=== PATIENT | female | born 1965 | race Caucasian/White ===

== ENCOUNTER 2017-07-31 19:50 | Inpatient (IN) ==
--- NOTE | 2017-07-31 20:04 | Emergency Department Note ---
Disposition Clinical Impression: Acute renal insufficiency Fall Qualifiers: Encounter type: initial encounter Qualified Code(s): W19.XXXA - Unspecified fall, initial encounter Altered mental status Qualifiers: Altered mental status type: unspecified Qualified Code(s): R41.82 - Altered mental status, unspecified Disposition: Admitted As Inpatient Fall HPI - General Chief Complaint: ED Fall Stated Complaint: fall Time Seen by Provider: 07/31/17 20:00 Source: patient, EMS Nursing Notes Reviewed: Yes Vital Signs Reviewed: Yes - History of Present Illness HPI Narrative: 52-year-old female presents to the emergency department after having a fall at home. She was in a chair and stated that she stood up and everything went black , and she said that she fell and hit the right side of her head as well as her right shoulder. She is complaining of head pain and shoulder pain. She was complaining of mild paresthesias of the right arm for EMS, but is not currently complaining of that for me. Patient denies any nausea, vomiting. Family home states the patient is on a lot of medications and was recently given a prescription for Vistaril. Patient denies any chest pain, but she does admit to pain in her right shoulder, right side of her head, no neck pain, no new back pain as this patient has had back surgery in past. - Related Data Home Medications Medication Instructions Recorded Confirmed Atenolol [Tenormin] 50 mg PO BID 12/16/15 08/01/17 Bupropion HCl [Wellbutrin Xl] 300 mg PO HS 12/16/15 08/01/17 Lisinopril [Zestril] 30 mg PO DAILY 12/16/15 08/01/17 Lovastatin [Mevacor] 40 mg PO DAILY 12/16/15 08/01/17 Morphine Sulfate [Ronit] 15 mg PO TID 12/16/15 08/01/17 Trazodone HCl [Oleptro ER] 50 mg PO HS 12/16/15 08/01/17 Alprazolam 0.5 mg PO DAILY 08/01/17 08/01/17 BuPROPion XL (24 HR) 150 mg PO DAILY 08/01/17 08/01/17 Halcion 0.25 mg PO DAILY 08/01/17 08/01/17 Lamictal 200 mg PO DAILY 08/01/17 08/01/17 Levocetirizine Dihydrochloride 5 mg PO DAILY 08/01/17 08/01/17 Quetiapine Fumarate [Seroquel] 200 mg PO DAILY 08/01/17 08/01/17 Vistaril 50 mg PO DAILY 08/01/17 08/01/17 Allergies Allergy/AdvReac Type Severity Reaction Status Date / Time No Known Allergies Allergy Verified 12/28/16 14:31 All systems ED: reviewed and negative except as stated. Review of Systems: As Per HPI Constitutional: Denies: fever Cardiovascular: Denies: chest pain, palpitations Gastrointestinal: Denies: abdominal pain, nausea, vomiting Genitourinary: Denies: urgency, dysuria, frequency Neurological: Reports: weakness, confusion. Denies: headache, numbness, paresthesias Endocrine: Reports: fatigue Fall PMH - Past Medical History Medical history: Reports: non-contributory Psychiatric history: Reports: anxiety, bipolar, depression, panic disorder, prior suicide attempt - Social History Smoking Status: Current every day smoker Alcohol use: Reports: occasionally Drug use: Reports: none Physical Exam CONSTITUTIONAL: The patient is alert and arousable, but appears disoriented, pupils are equal and reactive but slightly myotic HEAD: Normocephalic; atraumatic. EYES: PERRL, no scleral icterus. NOSE: The nose is normal in appearance without rhinorrhea Neck: No central midline tenderness of the neck. RESP: Normal chest excursion with respiration; breath sounds clear and equal bilaterally; no wheezes, rhonchi, or rales CARD: Regular rhythm, without murmurs, rub or gallop ABD: Non-distended; non-tender, soft,without rigidity, rebound or guarding Back: No vertebral step-offs or midline tenderness to palpation SKIN: Normal for age and race; warm and dry; no apparent lesions Neuro: GCS 14, no focal neurologic deficits, negative [id number], upper and lower extremities sensation intact throughout, strength 5 out of 5 in upper and lower shoulders bilaterally - General Limitations: no limitations General appearance: alert, in no apparent distress Course Vital Signs Temperature 97.9 F 07/31/17 19:52 Pulse Rate 72 07/31/17 19:52 Respiratory Rate 18 07/31/17 19:52 Blood Pressure 161/94 07/31/17 19:52 O2 Sat by Pulse Oximetry 99 07/31/17 19:52 Temperature 97.6 F 08/01/17 03:39 Pulse Rate 56 08/01/17 03:47 Respiratory Rate 16 08/01/17 03:39 Blood Pressure 122/73 08/01/17 03:47 O2 Sat by Pulse Oximetry 93 08/01/17 03:39 Oxygen Delivery Oxygen Delivery Room Air Fall - MDM Narrative Medical decision making narrative: 52-year-old female presents to the emergency department with concern for fall and altered mental status. This is a patient who is on a lot of sedating medications. Family states that patient tends to become disoriented at night. On initial exam, patient was alert, but appeared to be intoxicated. We will obtain CT scan of the head and neck and this does not reveal any acute abnormality. Chest x-ray did not reveal any amount as well. EKG revealed no ischemic ST changes. Troponin was negative, CBC revealed a hemoglobin 11.3, which is mildly lower from a previous one. Urinalysis does not reveal any evidence of infection. Urine drug screen was positive for opiates and benzos. Patient began to become less arousable during her stay in the emergency department. At that time, we did administer Narcan and patient did not respond to it. I was at bedside with patient and family and it was decided to admit her to the hospital for further observation and evaluation. I spoke with the hospitalist and he agreed to accept admission. Patient's hemodynamic was stable, protecting her airway, but disoriented at time of admission. Vital Signs Temperature 97.9 F 07/31/17 19:52 Pulse Rate 72 07/31/17 19:52 Respiratory Rate 18 07/31/17 19:52 Blood Pressure 161/94 07/31/17 19:52 O2 Sat by Pulse Oximetry 99 07/31/17 19:52 Temperature 97.6 F 08/01/17 03:39 Pulse Rate 56 08/01/17 03:47 Respiratory Rate 16 08/01/17 03:39 Blood Pressure 122/73 08/01/17 03:47 O2 Sat by Pulse Oximetry 93 08/01/17 03:39 Oxygen Delivery Oxygen Delivery Room Air - Lab Data Result diagrams: 08/01/17 04:19 08/01/17 04:19 Lab Results 07/31/17 07/31/17 07/31/17 Range/Units 20:15 20:15 20:38 WBC 8.3 (4.3-11.1) K/mcL RBC 4.11 (3.82-4.97) M/mcL Hgb 12.1 (11.5-15.4) g/dL Hct 36.0 (35.3-44.9) % MCV 87.6 (83.0-100.0) fL MCH 29.4 (28.0-33.3) pg MCHC 33.6 (31.6-35.5) g/dL RDW 12.1 (11.5-14.5) % Plt Count 167 (140-400) K/mcL MPV 9.5 (9.4-12.4) fL Immature Gran % 0.4 (0-4) % Seg Neutrophils % 71.9 % Lymphocytes % 16.0 % Monocytes % 9.7 % Eosinophils % 1.5 % Basophils % 0.5 % Neutrophils # 6.0 (1.6-8.9) K/mcL Lymphocytes # 1.3 (0.6-4.6) K/mcL Monocytes # 0.8 (0.0-1.3) K/mcL Eosinophils # 0.1 (0.0-0.6) K/mcL Basophils # 0.0 (0.0-0.2) K/mcL Sodium (136-145) mEq/L Potassium (3.5-4.5) mEq/L Chloride (98-109) mEq/L Carbon Dioxide (19-29) mEq/L BUN (7-20) mg/dL Creatinine (0.57-1.11) mg/dL Est GFR ( Amer) (> 60) Est GFR (Non-Af Amer) (> 60) BUN/Creatinine Ratio (6-26) Glucose (70-99) mg/dL Calculated Osmolality (280-300) Calcium (8.6-10.8) mg/dL Troponin I (0-0.03) ng/mL TSH (0.350-4.840) mcIU/mL Urine Color Yellow (Yellow) Urine Clarity Clear (Clear) Urine pH 7.0 (5.0-8.0) pH Units Ur Specific [place] 1.023 (1.010-1.025) Urine Protein Negative (Neg-Trace) mg/dL Urine Glucose (UA) Normal (Normal) mg/dL Urine Ketones Negative (Negative) mg/dL Urine Blood Negative (Negative) Urine Nitrite Negative (Negative) Urine Bilirubin Negative (Negative) Urine Urobilinogen Normal (Normal) mg/dL Ur Leukocyte Esterase Negative (Negative) Ur Culture Indicated? NO (NO) Urine Opiates Screen Positive H (Mshftk=423) ng/mL Ur Barbiturates Screen Negative (Eoyijy=062) ng/mL Ur Phencyclidine Scrn Negative (Cutoff=25) ng/mL Ur Amphetamines Screen Negative (Htqmlx=3929) ng/mL U Benzodiazepines Scrn Positive H (Rahxyh=125) ng/mL Urine Cocaine Screen Negative (Cutoff= 300) ng/mL U Marijuana (THC) Screen Negative (Cutoff = 50) ng/mL 07/31/17 07/31/17 07/31/17 Range/Units 20:38 20:38 20:38 WBC (4.3-11.1) K/mcL RBC (3.82-4.97) M/mcL Hgb (11.5-15.4) g/dL Hct (35.3-44.9) % MCV (83.0-100.0) fL MCH (28.0-33.3) pg MCHC (31.6-35.5) g/dL RDW (11.5-14.5) % Plt Count (140-400) K/mcL MPV (9.4-12.4) fL Immature Gran % (0-4) % Seg Neutrophils % % Lymphocytes % % Monocytes % % Eosinophils % % Basophils % % Neutrophils # (1.6-8.9) K/mcL Lymphocytes # (0.6-4.6) K/mcL Monocytes # (0.0-1.3) K/mcL Eosinophils # (0.0-0.6) K/mcL Basophils # (0.0-0.2) K/mcL Sodium 139 (136-145) mEq/L Potassium 4.8 H (3.5-4.5) mEq/L Chloride 108 (98-109) mEq/L Carbon Dioxide 26 (19-29) mEq/L BUN 35 H (7-20) mg/dL Creatinine 1.31 H (0.57-1.11) mg/dL Est GFR ( Amer) 51 L (> 60) Est GFR (Non-Af Amer) 42 L (> 60) BUN/Creatinine Ratio 27 H (6-26) Glucose 97 (70-99) mg/dL Calculated Osmolality 296 (280-300) Calcium 10.5 (8.6-10.8) mg/dL Troponin I 0.00 (0-0.03) ng/mL TSH 1.367 (0.350-4.840) mcIU/mL Urine Color (Yellow) Urine Clarity (Clear) Urine pH (5.0-8.0) pH Units Ur Specific [place] (1.010-1.025) Urine Protein (Neg-Trace) mg/dL Urine Glucose (UA) (Normal) mg/dL Urine Ketones (Negative) mg/dL Urine Blood (Negative) Urine Nitrite (Negative) Urine Bilirubin (Negative) Urine Urobilinogen (Normal) mg/dL Ur Leukocyte Esterase (Negative) Ur Culture Indicated? (NO) Urine Opiates Screen (Zudqed=684) ng/mL Ur Barbiturates Screen (Afqydl=198) ng/mL Ur Phencyclidine Scrn (Cutoff=25) ng/mL Ur Amphetamines Screen (Vaoogn=7690) ng/mL U Benzodiazepines Scrn (Mvoisb=365) ng/mL Urine Cocaine Screen (Cutoff= 300) ng/mL U Marijuana (THC) Screen (Cutoff = 50) ng/mL - EKG Data EKG attestation: Yes I reviewed and interpreted this EKG. EKG results narrative: 19:58 A jugular rate 69 bpm, AL interval 214 ms, QRS druze 120 ms, QT 372 ms, QTC 392 ms, normal axis. Sinus rhythm with a ventricular rate of 69 bpm. There is first-degree AV block. There is no evidence of any ischemia on this electrocardiogram. This study was compared to previous one performed on June 23, 2017 Attestation Statement - Attestation Attestation: I, Giovanny Ceron MD, personally evaluated this patient and discussed their management with the resident physician. I reviewed the resident's note and agree with the documented findings, medical decision making, and plan of care. 52-year-old female presents to the emergency department after she had an episode at home where she became dizzy and lightheaded and fell. She does not really remember falling and is unsure if she tripped or just passed out. She did hit her head and complains of pain in the right side of her head and her right shoulder. Also right upper back and neck. Here in the emergency department the patient appears to be overmedicated. She is very drowsy and sleepy and sometimes will only respond to sternal rub. Her speech is slow and slurred. Patient's [id number] is present and states that she has seen her have similar episodes in the past. She is on pain medications. On examination patient is a well-developed well-nourished female in no acute distress. She is drowsy and sleepy but responds to physical stimuli. There is no cyanosis or diaphoresis. No scalp hematomas noted. Some tenderness over the right scalp. No facial contusions or swelling noted. Neck is supple with some mild right-sided posterior tenderness. No tenderness directly over the cervical spine. Mild tenderness of the right shoulder with full range of motion. Chest is nontender to palpation. Breath sounds are clear and equal bilaterally. Heart regular rate and rhythm. Abdomen is soft and nontender with normal bowel sounds. No gross focal neurological deficits. Labs reviewed and unremarkable. Tox screen positive for opiates and benzodiazepines. CT of the head and cervical spine negative. Chest x-ray negative. X-ray of the right shoulder negative. Patient was observed here in the emergency department for several hours in continued to be extremely drowsy and difficult to arouse and actually seems to maybe be a little worse than originally. She did receive a low dose of Narcan with no significant change. The hospitalist, Dr. Sandoval, was consulted and accepted the admission of the patient.
[2017-07-31 20:27] LABS: Bilirubin,Urine Negative (Negative); Blood,Urine Negative (Negative); Clarity,Urine Clear (Clear); Color,Urine Yellow (Yellow); Glucose,Urine (UA) Normal (Normal); Ketones,Urine Negative (Negative); Leukocyte Esterase,Urine Negative (Negative); Nitrite,Urine Negative (Negative); Protein,Urine Negative (Neg-Trace); Specific Gravity,Urine 1.023 (1.010-1.025); Urobilinogen,Urine Normal (Normal)
[2017-07-31 20:48] LABS: Basophils % 0.5 %; Eosinophils # 0.1 K/mcL (0.0-0.6); Eosinophils % 1.5 %; Hemoglobin 12.1 g/dL (11.5-15.4); Immature Granulocytes % 0.4 % (0-4); Lymphocytes # 1.3 K/mcL (0.6-4.6); Mean Corpuscular HGB Conc 33.6 g/dL (31.6-35.5); Mean Corpuscular Hemoglobin 29.4 pg (28.0-33.3); Mean Corpuscular Volume 87.6 fL (83.0-100.0); Mean Platelet Volume 9.5 fL (9.4-12.4); Monocytes # 0.8 K/mcL (0.0-1.3); Monocytes % 9.7 %; Platelet Count 167 K/mcL (140-400); Red Blood Count 4.11 M/mcL (3.82-4.97); Red Cell Distribution Width 12.1 % (11.5-14.5); Segmented Neutrophils % 71.9 %
[2017-07-31 21:02] LABS: Calcium 10.5 mg/dL (8.6-10.8); Potassium 4.8 mEq/L (3.5-4.5)
[2017-07-31] MEDS ORDERED: Naloxone 0.4 MG/ML INJ IVP ONE (23:04)
[2017-07-31] MEDS ORDERED: Naloxone 0.4 MG/ML INJ ONE (23:04)
[2017-08-01 00:05] LABS: Amphetamine Screen,Urine Negative ng/mL (Cutoff=1000); Barbiturate Screen,Urine Negative ng/mL (Cutoff=200); Benzodiazepines Screen,Urine Positive ng/mL (Cutoff=200); Cannabinoid Screen,Urine Negative ng/mL (Cutoff = 50); Cocaine Screen,Urine Negative ng/mL (Cutoff= 300); Opiate Screen,Urine Positive ng/mL (Cutoff=300); Phencyclidine Screen,Urine Negative ng/mL (Cutoff=25)
[2017-08-01] MEDS ORDERED: 0.9 % Sodium Chloride 1,000 ML IVC ONE (00:07)
[2017-08-01] MEDS ORDERED: Acetaminophen 325 MG TABLET PO PRN (02:08)
[2017-08-01] MEDS ORDERED: Ondansetron ODT 4 MG TAB.RAPDIS SL PRN (02:08)
[2017-08-01] MEDS ORDERED: 0.9 % Sodium Chloride 1,000 ML IVC SCH (02:15)
--- NOTE | 2017-08-01 02:18 | Internal Med History&Physical ---
<Gio Shay - Last Filed: 08/01/17 02:53> Date of Encounter: 08/01/17 Time of Encounter: 01:45 Assessment and Plan (1) Syncope Current visit: Yes Status: Acute Patient claims to have become dizzy and light-headed when she quickly stood up. Neuro exam was normal. Vitals upon presentation were stable. EKG does show some TX prolongation, suggesting a 1st degree AV block. No signs of ST-elevations or acute ischemic changes when compared to prior EKG. Patient did present with a murmur on the aortic post and also of the carotids b/l. No prior echocardiogram was avialable. [place]-hallpike test was negative. Her syncope seems most likely attributable to a vasovagal response, given that it occurred right when she stood up and started to experience dizziness. However, given that she did present with a heart mumur and bruits were appreciated in her carotids b/l, a cardiac cause to her syncope cannot be ruled out yet. In addition, since her syncope was unwitnessed, a seizure cannot be ruled out as well. - Orthostatic vitals. - Cardiac telemetry monitoring. - Echocardiogram. - B/L carotid duplex. - EEG. - ASA - Statin. Qualifiers: Syncope type: unspecified Qualified Code(s): R55 - Syncope and collapse (2) Status post fall Current visit: Yes Status: Acute Head CT, cervical CT, and shoulder x-ray were negative. - Fall precautions. (3) LACY (acute kidney injury) Current visit: Yes Status: Acute Last known creatinine was 1.09 in 2015. - IV fluids. (4) Hyperkalemia Current visit: Yes Status: Acute Potassium level at 4.8. - Continue to monitor for now. Plan to give kayexalate if it increases. (5) Hypertension Current visit: Yes Status: Acute BP currently at 152/83. - Home med of lisinopril 30 mg qd. Qualifiers: Hypertension type: essential hypertension Qualified Code(s): I10 - Essential (primary) hypertension (6) DVT prophylaxis Current visit: Yes Status: Acute - SCDs. Internal Medicine - H&P: HPI Chief complaint: Syncope/fall Admitted From: Emergency Dept History of present illness: Ms. Neal is a 52 year old female with a PMH of anxiety/depression and HTN that presents for syncope and s/p fall. Patient says that she suddenly became dizzy when she stood up and then "blacked out". She had apparently hit the R side of her head and R shoulder when she collapsed on the floor. This was unwitnessed and the son, who was present at bedside, was unsure how long she was out. Patient was able to be aroused in the ambulance on the way to the ED. Patient's son says that is has happened again a year ago when she was getting milk from the refrigerator and passed out. When I spoke to her today, she was alert and oriented x 2 (unable to remember date). Her son says that she was not like this before the fall. Patient says she had started vistaril a few days ago in order to ween off from taking Ativan daily. Patient mentions that she does not drink water on a daily basis and she mostly drinks coffee instead. She admits to some light-headedness, but she denies any LEAL, vision changes, chest pain, SOB, fever, chills, recent illness, dysuria, hematuria, constipation, or diarrhea. Past Med Surg Social Fam HX - Past Medical History Medical history: non-contributory Psychiatric history: anxiety, bipolar, depression, panic disorder, prior suicide attempt - Social History Smoking Status: Current every day smoker Smokeless Tobacco Status: No Alcohol use: occasionally Drug use: none - Family History Mother Adopted: [place]: LORI[place] Family Member Ethnicity: Non- Living Status: Age at : 48 Cause of : SUICIDE Hx Family Cardiac Disorders: No Hx Family Respiratory Disorders: No Hx Family Cancer: No Hx Family GI Disorders: No Hx Family Genitourinary Disorders: No Hx Family Endocrine Disorder: No Hx Family Musculoskeletal Disorders: No Hx Family Neuromuscular Disorders: No Hx Family Neurologic Disorders: No Hx Family HEENT Disorders: No Hx Family Autoimmune Disorders: No Hx Family Reproductive Disorders: No Hx Family Psychosocial Disorders: Yes (SUICIDE) Hx Family Medical Disorders: No Internal Medicine - H&P: Meds Atenolol [Tenormin] 50 mg PO BID 12/16/15 [History] Bupropion HCl [Wellbutrin Xl] 300 mg PO HS 12/16/15 [History] Lisinopril [Zestril] 30 mg PO DAILY 12/16/15 [History] Lovastatin [Mevacor] 40 mg PO DAILY 12/16/15 [History] Morphine Sulfate [Ronit] 15 mg PO TID 12/16/15 [History] Trazodone HCl [Oleptro ER] 50 mg PO HS 12/16/15 [History] Alprazolam 0.5 mg PO DAILY 08/01/17 [History] BuPROPion XL (24 HR) 150 mg PO DAILY 08/01/17 [History] Halcion 0.25 mg PO DAILY 08/01/17 [History] Lamictal 200 mg PO DAILY 08/01/17 [History] Levocetirizine Dihydrochloride 5 mg PO DAILY 08/01/17 [History] Quetiapine Fumarate [Seroquel] 200 mg PO DAILY 08/01/17 [History] Vistaril 50 mg PO DAILY 08/01/17 [History] 3 Allergy/AdvReac Type Severity Reaction Status Date / Time No Known Allergies Allergy Verified 12/28/16 14:31 All Systems PM: A 10-system review of systems was performed and is negative for pertinent findings except as documented above in the HPI. - Constitutional Constitutional: falls, no chills, no fever(s), no weakness - EENT Eyes: no change in vision Nose, mouth and throat: dry mouth - Cardiovascular Cardiovascular ROS IM: lightheadedness, syncope, no chest pain, no dyspnea, no palpitations - Respiratory Respiratory: no cough, no dyspnea, no dyspnea on exertion, no wheezing - Gastrointestinal Gastrointestinal: no abdominal pain, no diarrhea, no nausea, no vomiting - Genitourinary Genitourinary: no dysuria, no hematuria - Musculoskeletal Musculoskeletal ROS IM: back pain - Neurological Neurological ROS: confusion, no dizziness, no focal weakness, no headache(s), no numbness, no tingling, no weakness - Psychiatric Psychiatric: anxiety, depression - Constitutional Vitals: Temp Pulse Resp BP Pulse Ox 97.7 F 61 14 152/83 93 08/01/17 00:59 08/01/17 00:59 08/01/17 00:59 08/01/17 00:59 08/01/17 00:59 General appearance: Present: A&O X 2, pleasant, no acute distress, answers questions appropriately - Head Head exam: Present: atraumatic, normal inspection Additional comments: No signs of bleeding, bruising, or erythema. - Eye Eye exam: Present: EOMI, PERRL Pupils: Present: PERRL - Respiratory Respiratory exam: Present: CTAB. Absent: rales, respiratory distress, rhonchi, wheezes, tachypnea - Cardiovascular Cardiovascular exam: Present: RRR, +S1, +S2, systolic murmur (Early systolic murmur from aortic post) Additional comments: Murmur appreciated in carotids b/l. - GI/Abdominal GI/Abdominal exam: Present: normal bowel sounds, soft. Absent: guarding, rebound, tenderness - Extremities Exam Extremities exam: Present: full ROM, normal capillary refill, radial pulses palpable and symmetrical. Absent: cyanotic, pedal edema, tenderness - Neurological Exam Neurological exam: Present: alert, CN II-XII intact, reflexes normal (Upper DTRs intact. Unable to obtain LE DTRs as patient was unable to relax. ), no focal deficits, strengths equal and symetr throughout. Absent: motor sensory deficit Additional comments: [place]-hallpike test negative. Internal Med - H&P Results - Labs CBC & Chem 7: 07/31/17 20:38 07/31/17 20:38 <Diego Bryson - Last Filed: 08/01/17 03:47> Date of Encounter: 08/01/17 Internal Medicine - H&P: HPI History of present illness: Ms. Neal is a 52 year old female All Systems PM: A 10-system review of systems was performed and is negative for pertinent findings except as documented above in the HPI. - Constitutional Vitals: Temp Pulse Resp BP Pulse Ox 97.6 F 56 16 122/73 93 08/01/17 03:39 08/01/17 03:39 08/01/17 03:39 08/01/17 03:39 08/01/17 03:39 Internal Med - H&P Results - Labs CBC & Chem 7: 07/31/17 20:38 07/31/17 20:38 - Attending Attestation I examined this patient and my medical decision-making was reviewed with the Resident Physician. I agree with the documented findings, disposition and treatment plan as described except to the extent set forth below. I have seen and examined the patient. Patient is a 52-year-old female with past medical history of hypertension, anxiety, depression, bipolar disorder and hyperlipidemia. Patient presents to ED for syncope and status post fall. Patient states that she became dizzy earlier today and had a fall. Patient did have loss of consciousness. It is unclear as to how long the patient had passed out. This was unwitnessed. Unclear if patient had any seizure-like activity. Patient denies chest pain or shortness of breath or palpitations. She denies headache or dizziness or fever at this time. No abdominal pain or vomiting or diarrhea. Initial workup in the ED is negative. CT of the head and chest x-ray were both negative. Possibilities include cardiac arrhythmia or seizure. Echocardiogram and carotid Doppler and EEG are pending. Patient has been explained about her condition and plan of care in detail. She understood and agreed. No unanswered questions. CODE STATUS full code.
[2017-08-01] MEDS ORDERED: traZODone 50 MG TABLET PO SCH (04:00)
[2017-08-01 05:09] LABS: Basophils % 0.4 %; Eosinophils # 0.1 K/mcL (0.0-0.6); Eosinophils % 1.7 %; Hematocrit 33.9 % (35.3-44.9); Hemoglobin 11.3 g/dL (11.5-15.4); Immature Granulocytes % 0.3 % (0-4); Lymphocytes # 1.5 K/mcL (0.6-4.6); Lymphocytes % 21.8 %; Mean Corpuscular HGB Conc 33.3 g/dL (31.6-35.5); Mean Corpuscular Hemoglobin 29.4 pg (28.0-33.3); Mean Corpuscular Volume 88.1 fL (83.0-100.0); Mean Platelet Volume 9.9 fL (9.4-12.4); Monocytes # 0.7 K/mcL (0.0-1.3); Monocytes % 9.6 %; Neutrophils # 4.6 K/mcL (1.6-8.9); Platelet Count 164 K/mcL (140-400); Red Blood Count 3.85 M/mcL (3.82-4.97); Red Cell Distribution Width 12.2 % (11.5-14.5); Segmented Neutrophils % 66.2 %
[2017-08-01 05:24] LABS: BUN/Creatinine Ratio 28 (6-26); Blood Urea Nitrogen 30 mg/dL (7-20); Carbon Dioxide 23 mEq/L (19-29); Chloride 109 mEq/L (98-109); Glucose 81 mg/dL (70-99); Osmolality,Calculated 297 (280-300); Potassium 4.4 mEq/L (3.5-4.5); Sodium 141 mEq/L (136-145); eGFR For African Americans > 60 (> 60); eGFR For Non-African Americans 53 (> 60)
[2017-08-01] MEDS ORDERED: BuPROPion XL (24 HR) 150 MG TABLET PO SCH ×2 (09:00→21:00)
[2017-08-01] MEDS ORDERED: ALPRAZolam 0.5 MG TABLET PO SCH (09:00)
[2017-08-01] MEDS ORDERED: lamoTRIgine 100 MG TABLET PO SCH ×2 (09:00→21:00)
[2017-08-01] MEDS ORDERED: Aspirin 81 MG TAB.CHEW PO SCH (09:00)
[2017-08-01] MEDS ORDERED: hydrOXYzine pamoate 25 MG CAPSULE PO SCH (09:00)
[2017-08-01] MEDS ORDERED: *HR* Morphine Sulfate SR (12 HR) 15 MG TABLET.ER PO PRN (11:18)
--- NOTE | 2017-08-01 12:37 | Neurology - Consult Note ---
Date of Encounter: 08/06/17 Time of Encounter: 12:35 Assessment and Plan (1) Syncope Status: Acute This patient will seem to have an episode of blackout sound like a syncope. She is back to her baseline no focal deficits on neurological examination CT of the head is negative she is scheduled for further workup recommended cardiac workup. At the same time also suggest getting metabolic workup including vitamin B12 and TSH to make sure no underlying metabolic abnormality that may have caused her symptoms. Check for orthostatic hypotension Check for any underlying cardiac and his meals at might be the reason for her syncope along with other causes of cardiogenic syncope Though could do EEG but likelihood of finding any abnormalities less as the description is not like a typical seizure Other workup is as per primary care team Qualifiers: Syncope type: unspecified Qualified Code(s): R55 - Syncope and collapse (2) Status post fall Status: Acute History of Present Illness HPI: Ms. Neal is a 52 year old female with a PMH of anxiety/depression and HTN that presents for syncope and s/p fall. Patient says that she suddenly became dizzy when she stood up and then "blacked out". She had apparently hit the R side of her head and R shoulder when she collapsed on the floor. This was unwitnessed and the son, who was present at bedside, was unsure how long she was out. Patient was able to be aroused in the ambulance on the way to the ED. Patient's son says that is has happened again a year ago when she was getting milk from the refrigerator and passed out. she was started vistaril a few days ago in order to ween off from taking Ativan daily. Patient mentions that she does not drink water on a daily basis and she mostly drinks coffee instead. She admits to some light-headedness, but she denies any LEAL, vision changes, chest pain, SOB, fever Past Med Surg Social Fam HX - Past Medical History Medical history: non-contributory Psychiatric history: anxiety, bipolar, depression, panic disorder, prior suicide attempt - Social History Smoking Status: Current every day smoker Smokeless Tobacco Status: No Alcohol use: occasionally Drug use: none - Family History Mother Adopted: [place]: LORIENE Family Member Ethnicity: Non- Living Status: Age at : 48 Cause of : SUICIDE Hx Family Cardiac Disorders: No Hx Family Respiratory Disorders: No Hx Family Cancer: No Hx Family GI Disorders: No Hx Family Genitourinary Disorders: No Hx Family Endocrine Disorder: No Hx Family Musculoskeletal Disorders: No Hx Family Neuromuscular Disorders: No Hx Family Neurologic Disorders: No Hx Family HEENT Disorders: No Hx Family Autoimmune Disorders: No Hx Family Reproductive Disorders: No Hx Family Psychosocial Disorders: Yes (SUICIDE) Hx Family Medical Disorders: No Medications and Allergies Atenolol [Tenormin] 50 mg PO BID 12/16/15 [History] Bupropion HCl [Wellbutrin Xl] 300 mg PO DAILY 12/16/15 [History] Lisinopril [Zestril] 30 mg PO DAILY 12/16/15 [History] Lovastatin [Mevacor] 40 mg PO DAILY 12/16/15 [History] ALPRAZolam [Xanax 0.5 MG Tablet] 0.5 mg PO DAILY 08/01/17 [History] Baclofen [Lioresal] 10 mg PO TID 08/01/17 [History] BuPROPion XL (24 HR) [Wellbutrin XL] 150 mg PO DAILY 08/01/17 [History] Diclofenac Sodium [Voltaren] 75 mg PO BID 08/01/17 [History] HydrOXYzine Pamoate [Vistaril] 50 mg PO DAILY 08/01/17 [History] Levocetirizine Dihydrochloride 5 mg PO DAILY 08/01/17 [History] Morphine Sulfate SR (12 HR) [MS Contin] 1 tab PO Q8HR 08/01/17 [History] Quetiapine Fumarate [Seroquel] 200 mg PO HS 08/01/17 [History] Triazolam [Halcion] 0.5 mg PO HS 08/01/17 [History] lamoTRIgine [Lamictal] 300 mg PO HS 08/01/17 [History] traZODone [TraZODone] 50 mg PO HS 08/01/17 [History] 3 Allergy/AdvReac Type Severity Reaction Status Date / Time No Known Allergies Allergy Verified 12/28/16 14:31 All Systems: A 10-system review of systems was performed and is negative for pertinent findings except as documented above in the HPI. Physical Examination - Vital Signs Vital Signs: Initial Vital Signs Temp Pulse Resp BP Pulse Ox 97.9 F 72 18 161/94 99 07/31/17 19:52 07/31/17 19:52 07/31/17 19:52 07/31/17 19:52 07/31/17 19:52 - Neurologic Detailed motor examination: full strength in all major muscle groups Motor examination - right side: 5/5: deltoids, biceps, triceps, wrist flexion, wrist extension, human factors specialist, hip flexors, tibialis Anterior, quadriceps, toe extension (EHL), plantarflexion Motor examination - left side: 5/5: deltoids, biceps, triceps, wrist flexion, wrist extension, hip flexors, human factors specialist, quadriceps, tibialis Anterior, toe extension (EHL), plantarflexion Mental Status Examination: awake, alert, oriented to person, oriented to place, oriented to time, follows commands appropriately, answers questions appropriately, no agnosia, no aphasia, no aproxia Cranial nerve examination: PERRL, EOMI, visual brown intact, corneal reflexes brisk symmetrically, sensory to face intact, mastication intact, no facial asymmetry is present, no dysarthria, hearing is intact symmetrically, soft palate elevates bilaterally upon phonation, gag reflex intact, flexes SCM and trapezius muscles symmetrically with full power, tongue protrudes midline, no atrophy or facial fasiculations present Cerebellar examination: no dysmetria, performs finger to nose and heel to cho symmetrically without ataxia, no gait ataxia, no truncal ataxia, no difficulty with rapid alternating movements Results - Laboratory Findings CBC and BMP: 08/01/17 04:19 08/01/17 04:19 Abnormal lab findings: Abnormal lab results Hgb 11.3 g/dL (11.5-15.4) L 08/01/17 04:19 Hct 33.9 % (35.3-44.9) L 08/01/17 04:19 BUN 30 mg/dL (7-20) H 08/01/17 04:19 Est GFR (Non-Af Amer) 53 (> 60) L 08/01/17 04:19 BUN/Creatinine Ratio 28 (6-26) H 08/01/17 04:19 Urine Opiates Screen Positive ng/mL (Stgxyk=399) H 07/31/17 20:15 U Benzodiazepines Scrn Positive ng/mL (Jdrkjf=632) H 07/31/17 20:15 - Diagnostic Findings Additional findings: CT of head negative Consult Discharge Plan - Plan Instructions: Fall Prevention (DC), Fall Prevention for the Older Adult, Manager Investment (GEN) Referrals: Korey Wilson DO [Primary Care Provider] - 08/12/17 11:30 am
[2017-08-01 16:45] VITALS: BP 124/76
--- NOTE | 2017-08-01 18:02 | Discharge Summary ---
Date of Encounter: 08/01/17 Time of Encounter: 17:59 - Discharge Diagnosis (1) Syncope Priority: Primary Status: Acute Qualifiers: Syncope type: unspecified Qualified Code(s): R55 - Syncope and collapse (2) Status post fall Priority: Secondary Status: Acute (3) LACY (acute kidney injury) Priority: Secondary Status: Resolved (4) Hyperkalemia Priority: Secondary Status: Acute (5) Hypertension Priority: Secondary Status: Acute Qualifiers: Hypertension type: essential hypertension Qualified Code(s): I10 - Essential (primary) hypertension - Discharge Medications Home Medications: Atenolol [Tenormin] 50 mg PO BID 12/16/15 [History] Bupropion HCl [Wellbutrin Xl] 300 mg PO DAILY 12/16/15 [History] Lisinopril [Zestril] 30 mg PO DAILY 12/16/15 [History] Lovastatin [Mevacor] 40 mg PO DAILY 12/16/15 [History] ALPRAZolam [Xanax 0.5 MG Tablet] 0.5 mg PO DAILY 08/01/17 [History] Baclofen [Lioresal] 10 mg PO TID 08/01/17 [History] BuPROPion XL (24 HR) [Wellbutrin XL] 150 mg PO DAILY 08/01/17 [History] Diclofenac Sodium [Voltaren] 75 mg PO BID 08/01/17 [History] HydrOXYzine Pamoate [Vistaril] 50 mg PO DAILY 08/01/17 [History] Levocetirizine Dihydrochloride 5 mg PO DAILY 08/01/17 [History] Morphine Sulfate SR (12 HR) [MS Contin] 1 tab PO Q8HR 08/01/17 [History] Quetiapine Fumarate [Seroquel] 200 mg PO HS 08/01/17 [History] Triazolam [Halcion] 0.5 mg PO HS 08/01/17 [History] lamoTRIgine [Lamictal] 300 mg PO HS 08/01/17 [History] traZODone [TraZODone] 50 mg PO HS 08/01/17 [History] Allergies/Adverse Reactions: 3 Allergy/AdvReac Type Severity Reaction Status Date / Time No Known Allergies Allergy Verified 12/28/16 14:31 Date of admission: 08/01/17 02:58 Primary care physician: Korey Wilson DO Consults: 08/01/17 10:49 Consult to Interpret Exam [CONS] Routine Consulting Provider: Tanisha King I Consult to Interpret Exam: Interpret EEG 08/01/17 14:48 Consult to Damper Maker [CONS] Routine Reason for SW Consult: Patient's daughter voiced concerns regarding living situation. Discharging clinician: Lory Tanner - Patient Status Disposition: Home, Self-Care Condition: Good Functional capacity at discharge: independent ambulation Overall status at discharge: patient is back to baseline - Discharge Instructions Follow Up With: Korey Wilson DO [Primary Care Provider] - 08/12/17 11:30 am - Diet and Activity Activity: increase activity as tolerated Diet: advance to your usual diet Hospital course: Ms. Neal is a 52 year old female with a PMH of anxiety/depression and HTN that presents for syncope and s/p fall. Patient says that she suddenly became dizzy when she stood up and then "blacked out". She had apparently hit the R side of her head and R shoulder when she collapsed on the floor. This was unwitnessed and the son, who was present at bedside, was unsure how long she was out. Patient was able to be aroused in the ambulance on the way to the ED. Patient's son says that is has happened again a year ago when she was getting milk from the refrigerator and passed out. When I spoke to her today, she was alert and oriented x 2 (unable to remember date). Her son says that she was not like this before the fall. Patient says she had started vistaril a few days ago in order to ween off from taking Ativan daily. Patient mentions that she does not drink water on a daily basis and she mostly drinks coffee instead. She admits to some light-headedness, but she denies any LEAL, vision changes, chest pain, SOB, fever, chills, recent illness, dysuria, hematuria, constipation, or diarrhea. She was brought in for observation under cardiac telemetry monitoring. Allergy was consulted. A metabolic workup which showed normal TSH. Her BMP was unremarkable outside initially a potassium of 4.8, and a creatinine was elevated at 1.3. After day of observation as patient's creatinine improved to 1.08. she did not have any episodes of syncope. Echocardiogram was done and showed mild left ventricular diastolic dysfunction and aneurysmal interatrial septal. but no wall abnormalities and No evidence of PFO. Bilateral carotid were within normal limits. Settings were done and was negative. Infectious likely from decreased by mouth possibly dehydration given borderline acute kidney injury. Possible related even though she had normal. She is back to her baseline with no focal deficits on neuro exam. She was discharged in stable condition - Time Spent with Patient Total time spent providing and/or coordinating discharge services: - Constitutional Vitals: Temp Pulse Resp BP Pulse Ox 98.9 F 69 17 124/76 94 08/01/17 16:43 08/01/17 16:43 08/01/17 16:43 08/01/17 16:43 08/01/17 16:43 General appearance: Present: A&O X 2, pleasant, no acute distress, answers questions appropriately Exam: - Head Head exam: Present: atraumatic, normal inspection Additional comments: No signs of bleeding, bruising, or erythema. - Eye Eye exam: Present: EOMI, PERRL Pupils: Present: PERRL - Respiratory Respiratory exam: Present: CTAB. Absent: rales, respiratory distress, rhonchi, wheezes, tachypnea - Cardiovascular Cardiovascular exam: Present: RRR, +S1, +S2, systolic murmur (Early systolic murmur from aortic post) Additional comments: Murmur appreciated in carotids b/l. - GI/Abdominal GI/Abdominal exam: Present: normal bowel sounds, soft. Absent: guarding, rebound, tenderness - Extremities Exam Extremities exam: Present: full ROM, normal capillary refill, radial pulses palpable and symmetrical. Absent: cyanotic, pedal edema, tenderness - Neurological Exam Neurological exam: Present: alert, CN II-XII intact, reflexes normal (Upper DTRs intact. Unable to obtain LE DTRs as patient was unable to relax. ), no focal deficits, strengths equal and symetr throughout. Absent: motor sensory deficit Additional comments: [place]-hallpike test negative. - VTE Documentation of Mechanical Device: Intermittent pneumatic compression device
[2017-08-01] MEDS ORDERED: Temazepam 15 MG CAPSULE PO SCH (21:00)
--- NOTE | 2017-08-02 13:50 | Electrocardiograph Report ---
[place] [id number] Test Date: 2017-07-31 Pat Name: Beatrice Neal Department: 104 Room: 3B31 Gender: F Melter Assistant: CLAUDETTE : 1965 Requested By: Reggie Carr Order Number: [id number] Reading MD: Linh Gaitan Measurements Intervals [place] Rate: 69 P: 72 AK: 214 QRS: 50 QRSD: 120 T: 51 QT: 373 QTc: 393 Interpretive Statements SINUS RHYTHM WITH FIRST DEGREE AV BLOCK POSSIBLE RIGHT VENTRICULAR CONDUCTION DELAY [RSR (QR) IN V1/V2] Electronically Signed On 08-02-2017 13:49:08 EST by Linh Gaitan
--- NOTE | 2017-08-06 21:20 | EEG/EMG/Oth Biometrics Report ---
EEG Procedure Report Date of procedure: 08/01/17 EEG Procedure: Routine EEG Procedure Note: Routine 18-channel digital EEG was obtained to rule out any seizure activity or focal abnormalities. FINDINGS: Background rhythm during awake stage shows well-organized, well- developed, average voltage 8 to 9 hertz alpha activity in the posterior regions. It blocks with eye opening and it is bilaterally synchronous and symmetrical. No [id number] discharges or any lateralizing abnormalities are seen. Photic stimulation did not produce any abnormalities. Hyperventilation was performed for 3 minutes. No abnormalities were found during the procedure. Intermittent EMG artifacts were seen. Stage II sleep was not achieved. IMPRESSION: Normal awake study. No epileptiform discharges or any other paroxysmal activities or focal abnormalities seen. Clinical correlation is recommended
== END 2017-08-01 19:51 | disposition home or self-care (01) | DRG 312 ==
LOC: 3BNU 19:50 → EMEROO 19:50 → 3BNU 08-01 00:55
PROVIDERS: ADMIT Registered Nurse; ATTEND Registered Nurse